=== PATIENT | male | born 1995 | race Caucasian/White ===

== ENCOUNTER → 2020-06-17 | Outpatient (CLI) | payer OTHER ==
[2020-06-17 09:50] LABS: BASO # 0.1 (0.02-0.10); EOS # 0.1 (0.04-0.40); HEMATOCRIT 36.9 % (42.0-52.0); LYMPH# 1.7 (1.50-4.00); MEAN CELL VOLUME 100 fl (78-100); MEAN CORPUSCULAR HEMOGLOBIN 33 pg (27-31); MEAN CORPUSCULAR HGB CONC 33 g/dL (33-37); MEAN PLATELET VOLUME 8.9 fl (7.4-10.4); MONO # 0.5 (0.20-0.80); NEU # 3.2 (1.40-6.50); PLATELET COUNT 174 K/mm3 (130-400); RED BLOOD COUNT 3.69 M/mm3 (4.20-5.60); RED CELL DISTRIBUTION WIDTH 14.3 % (11.5-14.5); WHITE BLOOD COUNT 5.6 K/mm3 (4.8-10.8)
[2020-06-17 09:59] LABS: ALBUMIN 5.2 g/dL (3.5-5.0)
[2020-06-17 10:00] LABS: POTASSIUM 4.2 mmol/L (3.5-5.1)
[2020-06-17 10:01] LABS: CALCIUM 9.2 mg/dL (8.3-10.5)
[2020-06-17 10:02] LABS: TOTAL PROTEIN 8.3 g/dL (6.4-8.3)
[2020-06-17 10:04] LABS: TOTAL BILIRUBIN 0.5 mg/dL (0.2-1.2)
[2020-06-17 22:06] LABS: CORTISOL, AM (0800) 12 ug/dL (3-20); TESTOSTERONE 152 ng/dL (240-871)
[2020-06-18 04:44] LABS: FOLLICLE STIMULATING HORMONE 2.7 mIU/mL (()); LUTENIZING HORMONE 1.2 mIU/mL (()); PROLACTIN AMS 47.4 ng/mL (3.7-23.1)
[2020-06-20 00:32] LABS: ADRENOCORTICOTROPIC HORMONE 14 pg/mL (5-27)
== END ==
LOC: LAB 09:20
PROVIDERS: Internal Medicine
DX: E78.2 Mixed hyperlipidemia (principal); E05.00 Thyrotoxicosis with diffuse goiter without thyrotoxic crisis or storm; R79.89 Other specified abnormal findings of blood chemistry; R74.8 Abnormal levels of other serum enzymes

== ENCOUNTER → 2020-06-18 | Outpatient (CLI) | payer OTHER ==
[~2020-06-18] VITALS: Ht 175.3 cm; Wt 75.5 kg
[2020-06-18 10:20] VITALS: BP 115/70
[2020-06-18 10:33] VITALS: BP 103/61
[2020-06-18 11:57] VITALS: BP 105/76
[2020-06-20 00:34] LABS: ADRENOCORTICOTROPIC HORMONE 14 pg/mL (5-27)
== END ==
LOC: LAB 10:08
PROVIDERS: Internal Medicine
DX: I95.9 Hypotension, unspecified (principal)
CPT/HCPCS: J0834

== ENCOUNTER → 2020-08-06 | Outpatient (CLI) | payer OTHER ==
[2020-06-18 11:57] VITALS: BP 105/76
== END ==
LOC: RAD 09:03
DX: K52.9 Noninfective gastroenteritis and colitis, unspecified (principal); K31.9 Disease of stomach and duodenum, unspecified; E03.4 Atrophy of thyroid (acquired); R51.9 Headache, unspecified; E29.1 Testicular hypofunction; Z83.3 Family history of diabetes mellitus
CPT/HCPCS: A9585; Q9967

== ENCOUNTER → 2020-10-11 | Outpatient (CLI) | payer OTHER ==
[2020-06-18 11:57] VITALS: BP 105/76
[~2020-10-11] MED LIST: LEVOTHYROXINE0.15 MG PO; MAGNESIUM OXID400 M1 PO; ONE-A-DAY MEN'1 EAC2 PO; POTASSIUM CH2 MEQ/ML PO
== END ==
LOC: CARDLAB 12:00
DX: G47.33 Obstructive sleep apnea (adult) (pediatric) (principal)
CPT/HCPCS: G0399

== ENCOUNTER 2021-04-07 22:21 | Emergency (ER) | payer OTHER ==
[~2021-04-07] VITALS: Ht 172.7 cm; Wt 68.2 kg
[2021-04-07 22:50] LABS: HEMOGLOBIN 8.2 g/dL (13.5-18.0); MEAN CELL VOLUME 97 fl (78-100); MEAN CORPUSCULAR HEMOGLOBIN 33 pg (27-31); MEAN CORPUSCULAR HGB CONC 34 g/dL (33-37); MEAN PLATELET VOLUME 10.2 fl (7.4-10.4); PLATELET COUNT 120 K/mm3 (130-400); RED BLOOD COUNT 2.47 M/mm3 (4.20-5.60); WHITE BLOOD COUNT 6.7 K/mm3 (4.8-10.8)
[2021-04-07] MEDS ORDERED: LEVOTHYROXINE0.15 MG PO (22:55)
[2021-04-07] MEDS ORDERED: ONE-A-DAY MEN'1 EAC2 PO (22:56)
[2021-04-07 23:03] LABS: ALBUMIN 3.7 g/dL (3.5-5.0); SODIUM 138 mmol/L (136-145)
[2021-04-07 23:06] LABS: GLUCOSE 98 mg/dL (75-110)
[2021-04-07 23:07] LABS: CARBON DIOXIDE 24 mmol/L (22-29); PARTIAL THROMBOPLASTIN TIME 24.5 SECONDS (21.0-32.0); PROTHROMBIN TIME 9.9 SECONDS (9.0-12.0)
[2021-04-07 23:08] LABS: TOTAL BILIRUBIN 1.2 mg/dL (0.2-1.2)
[2021-04-07 23:11] LABS: AST-SGOT 34 U/L (5-34)
[2021-04-07 23:12] LABS: ALT/SGPT 24 U/L (0-55)
[2021-04-07 23:13] LABS: LIPASE 360 U/L (8-78)
[2021-04-07 23:19] LABS: POTASSIUM 2.5 mmol/L (3.5-5.1)
[2021-04-07 23:30] LABS: BASO # 0.09 (0.02-0.10); EOS # 0.04 (0.04-0.40); EOS % 0.6 % (0.0-4.0); LYMPH# 1.68 (1.50-4.00); MONO # 1.06 (0.20-0.80); NEU # 3.48 (1.40-6.50)
[2021-04-07 23:42] LABS: TROPONIN-I < 0.03 ng/mL (<0.030)
[2021-04-07 23:47] LABS: MAGNESIUM 1.52 mg/dL (1.60-2.60)
[2021-04-08 00:19] LABS: URINE APPEARANCE HAZY; URINE BILIRUBIN 2+ (NEGATIVE); URINE COLOR YELLOW; URINE GLUCOSE NEGATIVE (NEGATIVE); URINE KETONE NEGATIVE (NEGATIVE); URINE NITRATE NEGATIVE (NEGATIVE); URINE PROTEIN(semi-quant) TRACE mg/dL (NEGATIVE); URINE UROBILINOGEN NORMAL (NORMAL)
[2021-04-08 00:20] LABS: URINE BLOOD TRACE (NEGATIVE); URINE LEUKOCYTE ESTERASE TRACE (NEGATIVE); URINE MUCUS PRESENT (NOT PRESENT)
[2021-04-08] MEDS ORDERED: POTASSIUM CH2 MEQ/ML PO (00:42)
[2021-04-08] MEDS ORDERED: MAGNESIUM OXID400 M1 PO (00:42)
[2021-04-08 01:14] VITALS: BP 124/86
== END 2021-04-08 01:14 | disposition home or self-care (01) ==
LOC: ED 22:21
PROVIDERS: Nurse Practitioner
DX: D64.9 Anemia, unspecified (principal); E87.6 Hypokalemia; E83.42 Hypomagnesemia; E03.9 Hypothyroidism, unspecified; F17.210 Nicotine dependence, cigarettes, uncomplicated; Z79.890 Hormone replacement therapy; Z20.822 Contact with and (suspected) exposure to COVID-19

== ENCOUNTER → 2021-04-09 | Outpatient (CLI) | payer OTHER ==
[2021-04-09 09:20] LABS: POTASSIUM 4.4 mmol/L (3.5-5.1)
[2021-04-09 09:22] LABS: CALCIUM 9.7 mg/dL (8.3-10.5)
[2021-04-09 09:29] LABS: MAGNESIUM 1.77 mg/dL (1.60-2.60)
== END ==
LOC: LAB 08:30
PROVIDERS: Internal Medicine
DX: E03.9 Hypothyroidism, unspecified (principal); N28.9 Disorder of kidney and ureter, unspecified

== ENCOUNTER → 2021-05-15 | Outpatient (CLI) | payer MEDICAID, OTHER | LOC: RAD 14:30 | DX: E23.0 Hypopituitarism (principal) | CPT/HCPCS: A9585 ==

== ENCOUNTER → 2021-06-12 | Outpatient (CLI) | payer MEDICAID, OTHER ==
[2021-06-12 15:43] LABS: BASO # 0.01 K/mm3 (0.02-0.10); EOS # 0.12 K/mm3 (0.04-0.40); EOS % 2.5 % (0.0-4.0); HEMATOCRIT 34.9 % (42.0-52.0); HEMOGLOBIN 11.7 g/dL (13.5-18.0); LYMPH# 1.79 K/mm3 (1.50-4.00); MEAN CELL VOLUME 87 fl (78-100); MEAN CORPUSCULAR HEMOGLOBIN 29 pg (27-31); MEAN CORPUSCULAR HGB CONC 34 g/dL (33-37); MONO # 0.53 K/mm3 (0.20-0.80); NEU # 2.42 K/mm3 (1.40-6.50); PLATELET COUNT 177 K/mm3 (130-400); RED BLOOD COUNT 4.02 M/mm3 (4.20-5.60); RED CELL DISTRIBUTION WIDTH 11.7 % (11.5-14.5); WHITE BLOOD COUNT 4.9 K/mm3 (4.8-10.8)
[2021-06-12 15:46] LABS: POTASSIUM 3.9 mmol/L (3.5-5.1)
[2021-06-12 15:48] LABS: TOTAL PROTEIN 6.6 g/dL (6.4-8.3)
[2021-06-12 15:50] LABS: TOTAL BILIRUBIN 0.5 mg/dL (0.2-1.2)
== END ==
LOC: LAB 15:12
PROVIDERS: Internal Medicine
DX: E03.9 Hypothyroidism, unspecified (principal); N28.9 Disorder of kidney and ureter, unspecified

== ENCOUNTER → 2021-06-19 | Outpatient (CLI) | payer MEDICAID | LOC: LAB 14:29 | DX: D64.9 Anemia, unspecified (principal) ==

== ENCOUNTER → 2021-07-31 | Outpatient (CLI) | payer MEDICAID | LOC: LAB 10:21 | DX: E03.9 Hypothyroidism, unspecified (principal) ==

== ENCOUNTER → 2021-12-02 | Outpatient (CLI) | payer MEDICAID, OTHER | LOC: LAB 15:15 | DX: G47.33 Obstructive sleep apnea (adult) (pediatric) (principal); E03.9 Hypothyroidism, unspecified; E23.0 Hypopituitarism; E55.9 Vitamin D deficiency, unspecified; K90.9 Intestinal malabsorption, unspecified; D64.9 Anemia, unspecified; N28.9 Disorder of kidney and ureter, unspecified; E61.1 Iron deficiency ==

== ENCOUNTER → 2022-01-23 | Emergency (ER) | payer MEDICAID ==
[~2022-01-23] VITALS: Ht 172.7 cm; Wt 75.0 kg
[~2022-01-23] MED LIST changes: +LEVO-T137 MCG PO
[2022-01-23 18:33] LABS: BASO # 0.03 K/mm3 (0.02-0.10); HEMATOCRIT 48.1 % (42.0-52.0); HEMOGLOBIN 16.6 g/dL (13.5-18.0); LYMPH# 2.28 K/mm3 (1.50-4.00); MEAN CELL VOLUME 83 fl (78-100); MEAN CORPUSCULAR HEMOGLOBIN 29 pg (27-31); MEAN CORPUSCULAR HGB CONC 35 g/dL (33-37); MEAN PLATELET VOLUME 11.6 fl (7.4-10.4); MONO # 2.87 K/mm3 (0.20-0.80); NEU # 27.55 K/mm3 (1.40-6.50); PLATELET COUNT 328 K/mm3 (130-400); RED CELL DISTRIBUTION WIDTH 13.4 % (11.5-14.5)
[2022-01-23 18:40] LABS: ALBUMIN 5.3 g/dL (3.5-5.0); POTASSIUM 4.6 mmol/L (3.5-5.1); SODIUM 127 mmol/L (136-145)
[2022-01-23 18:41] LABS: CALCIUM 9.1 mg/dL (8.3-10.5); WHITE BLOOD COUNT 33.4 K/mm3 (4.8-10.8)
[2022-01-23 18:43] LABS: TOTAL PROTEIN 8.5 g/dL (6.4-8.3)
[2022-01-23 18:44] LABS: TOTAL BILIRUBIN 0.5 mg/dL (0.2-1.2)
[2022-01-23 18:48] LABS: AST-SGOT 10 U/L (5-34)
[2022-01-23 18:49] LABS: ALT/SGPT 15 U/L (0-55); MAGNESIUM 2.25 mg/dL (1.60-2.60)
[2022-01-23 18:55] VITALS: BP 121/95
[2022-01-23 19:10] LABS: CARBON DIOXIDE < 5 mmol/L (22-29); GLUCOSE 763 mg/dL (75-110)
[2022-01-23 19:47] LABS: LYMPHOCYTE 7 % (20-51); MONOCYTE 11 % (3-10); NEUTROPHILS 82 % (42-75)
[2022-01-23 22:37] LABS: URINE APPEARANCE CLEAR; URINE BILIRUBIN NEGATIVE (NEGATIVE); URINE BLOOD TRACE (NEGATIVE); URINE COLOR STRAW; URINE KETONE 3+ (NEGATIVE); URINE LEUKOCYTE ESTERASE NEGATIVE (NEGATIVE); URINE NITRATE NEGATIVE (NEGATIVE); URINE PROTEIN(semi-quant) 1+ (NEGATIVE); URINE UROBILINOGEN NORMAL (NORMAL); URINE WBC 0-1 /hpf (0-3)
== END ==
LOC: ED 18:02
PROVIDERS: Nurse Practitioner Family
DX: U07.1 COVID-19 (principal); E11.10 Type 2 diabetes mellitus with ketoacidosis without coma; F17.210 Nicotine dependence, cigarettes, uncomplicated; Z28.310 Unvaccinated for COVID-19
CPT/HCPCS: J1815; J7030

== ENCOUNTER → 2023-04-23 | Outpatient (CLI) | payer BC ==
[2023-04-23 10:05] LABS: BASO # 0.03 K/mm3 (0.02-0.10); EOS # 0.15 K/mm3 (0.04-0.40); EOS % 1.6 % (0.0-4.0); HEMATOCRIT 37.4 % (42.0-52.0); HEMOGLOBIN 12.5 g/dL (13.5-18.0); LYMPH# 2.52 K/mm3 (1.50-4.00); MEAN CELL VOLUME 90 fl (78-100); MEAN CORPUSCULAR HEMOGLOBIN 30 pg (27-31); MEAN CORPUSCULAR HGB CONC 33 g/dL (33-37); MEAN PLATELET VOLUME 10.2 fl (7.4-10.4); MONO # 0.68 K/mm3 (0.20-0.80); NEU # 6.22 K/mm3 (1.40-6.50); PLATELET COUNT 141 K/mm3 (130-400); RED BLOOD COUNT 4.16 M/mm3 (4.20-5.60); RED CELL DISTRIBUTION WIDTH 12.2 % (11.5-14.5); WHITE BLOOD COUNT 9.6 K/mm3 (4.8-10.8)
[2023-04-23 22:59] LABS: FOLLICLE STIMULATING HORMONE 1.6 mIU/mL (1.0-12.0); LUTENIZING HORMONE 1.1 mIU/mL (0.6-12.1)
== END ==
LOC: LAB 09:38
PROVIDERS: Internal Medicine
DX: E03.9 Hypothyroidism, unspecified (principal); G47.33 Obstructive sleep apnea (adult) (pediatric); E23.0 Hypopituitarism; E55.9 Vitamin D deficiency, unspecified; K90.9 Intestinal malabsorption, unspecified; D64.9 Anemia, unspecified; N28.9 Disorder of kidney and ureter, unspecified; E61.1 Iron deficiency; E10.65 Type 1 diabetes mellitus with hyperglycemia; R89.1 Abnormal level of hormones in specimens from other organs, systems and tissues

== ENCOUNTER → 2024-01-13 | Outpatient (CLI) | payer BC ==
[2024-03-02 10:05] LABS: TESTOSTERONE AMS
[2024-03-02 10:06] LABS: ALBUMIN 4.3 g/dL (3.5-5.0); CALCIUM 9.5 mg/dL (8.3-10.5); MAGNESIUM 1.58 mg/dL (1.60-2.60); TOTAL BILIRUBIN 0.4 mg/dL (0.2-1.2); TOTAL PROTEIN 6.6 g/dL (6.4-8.3)
[2024-03-02 10:41] LABS: BASO # 0.02 K/mm3 (0.02-0.10); EOS # 0.12 K/mm3 (0.04-0.40); EOS % 1.7 % (0.0-4.0); HEMATOCRIT 36.6 % (42.0-52.0); HEMOGLOBIN 12.5 g/dL (13.5-18.0); MEAN CELL VOLUME 85 fl (78-100); MEAN CORPUSCULAR HEMOGLOBIN 29 pg (27-31); MEAN CORPUSCULAR HGB CONC 34 g/dL (33-37); MEAN PLATELET VOLUME 10.1 fl (7.4-10.4); MONO # 0.55 K/mm3 (0.20-0.80); NEU # 3.48 K/mm3 (1.40-6.50); PLATELET COUNT 176 K/mm3 (130-400); RED BLOOD COUNT 4.29 M/mm3 (4.20-5.60); RED CELL DISTRIBUTION WIDTH 12.2 % (11.5-14.5); WHITE BLOOD COUNT 7.1 K/mm3 (4.8-10.8)
== END ==
LOC: LAB 16:04
PROVIDERS: Internal Medicine
DX: E03.9 Hypothyroidism, unspecified (principal); K90.9 Intestinal malabsorption, unspecified; N28.9 Disorder of kidney and ureter, unspecified; E10.65 Type 1 diabetes mellitus with hyperglycemia; R89.1 Abnormal level of hormones in specimens from other organs, systems and tissues; E61.1 Iron deficiency

== ENCOUNTER → 2024-01-22 | Outpatient (REF) | payer BC | LOC: LAB 09:00 | DX: W57.XXXA Bitten or stung by nonvenomous insect and other nonvenomous arthropods, initial encounter (principal) ==

== ENCOUNTER 2024-04-26 23:12 | Emergency (ER) | payer BC ==
[~2024-04-26] VITALS: Ht 172.7 cm; Wt 62.3 kg
[2024-04-26] MEDS ORDERED: NS 1,000 ML IV ONE (23:30)
[2024-04-26] MEDS ORDERED: Morphine 4 MG/ML VIAL IV ONE (23:30)
[2024-04-26] MEDS ORDERED: Ondansetron 4 MG/2 ML VIAL IV ONE (23:30)
[2024-04-26 23:55] LABS: HEMATOCRIT 48.3 % (42.0-52.0); HEMOGLOBIN 15.9 g/dL (13.5-18.0); MEAN CELL VOLUME 89 fl (78-100); MEAN CORPUSCULAR HEMOGLOBIN 29 pg (27-31); MEAN CORPUSCULAR HGB CONC 33 g/dL (33-37); MEAN PLATELET VOLUME 10.2 fl (7.4-10.4); PLATELET COUNT 314 K/mm3 (130-400); RED BLOOD COUNT 5.43 M/mm3 (4.20-5.60); RED CELL DISTRIBUTION WIDTH 12.3 % (11.5-14.5)
[2024-04-26 23:58] LABS: ALBUMIN 4.8 g/dL (3.5-5.0); SODIUM 122 mmol/L (136-145)
[2024-04-26 23:59] LABS: CALCIUM 8.9 mg/dL (8.3-10.5)
[2024-04-27] LABS: TOTAL PROTEIN 7.9 g/dL (6.4-8.3)
[2024-04-27 00:01] LABS: WHITE BLOOD COUNT 38.2 K/mm3 (4.8-10.8)
[2024-04-27 00:02] LABS: TOTAL BILIRUBIN 0.3 mg/dL (0.2-1.2)
[2024-04-27] MEDS ORDERED: LEVOTHYROXINE0.2 MG PO (00:02)
[2024-04-27 00:03] LABS: CARBON DIOXIDE < 5 mmol/L (22-29); GLUCOSE 785 mg/dL (75-110)
[2024-04-27] MEDS ORDERED: FEOSOL325 MG PO (00:04)
[2024-04-27 00:06] LABS: AST-SGOT 23 U/L (5-34)
[2024-04-27 00:07] LABS: ALT/SGPT 25 U/L (0-55)
[2024-04-27 00:08] LABS: LIPASE 26 U/L (8-78)
[2024-04-27 00:12] LABS: BAND 5 % (0-10); NEUTROPHILS 76 % (42-75)
[2024-04-27 00:13] LABS: LYMPHOCYTE 10 % (20-51); MONOCYTE 9 % (3-10)
[2024-04-27] MEDS ORDERED: Insulin Aspart (NovoLOG) SQ ONE (00:15)
[2024-04-27] MEDS ORDERED: Piperacillin/Tazobactam Sodium 3.375 GM in NS 100 ML IV ONE (00:30)
[2024-04-27] MEDS ORDERED: NS 1,000 ML IV SCH (00:45)
[2024-04-27] MEDS ORDERED: Insulin Human Regular/NS 100 ML IV SCH (00:45)
[2024-04-27 01:30] VITALS: BP 132/68
== END 2024-04-27 01:30 | disposition short-term general hospital (02) ==
LOC: ED 23:12
PROVIDERS: Family Medicine
DX: E10.10 Type 1 diabetes mellitus with ketoacidosis without coma (principal); E87.5 Hyperkalemia; E87.1 Hypo-osmolality and hyponatremia; M54.50 Low back pain, unspecified; D72.829 Elevated white blood cell count, unspecified
CPT/HCPCS: J1815; J2270; J2405; J2543; J7030